=== PATIENT | male | born 1990 | race Caucasian/White ===

== ENCOUNTER 2016-11-09 17:16 | Emergency (ER) ==
[2016-11-09 18:01] VITALS: BP 118/80
--- NOTE | 2016-11-09 19:07 | UC ---
Throat Pain/Nasal Ricki HPI - HPI Summary HPI Summary: TWO WEEKS OF SINUS CONGESTION, COUGHING, AND RIB PAIN WITH COUGH. NO FEVER. - History of Current Complaint Chief Complaint: UCRespiratory Stated Complaint: COUGH,CHEST CONGESTION Time Seen by Provider: 11/09/16 18:15 Hx Obtained From: Patient Onset/Duration: Gradual Onset, Lasting Weeks, Still Present Severity: Moderate Pain Intensity: 0 Pain Scale Used: 0-10 Numeric Cough: Nonproductive Associated Signs & Symptoms: Positive: Sinus Discomfort, Nasal Discharge - Epiglottits Risk Factors Epiglottis Risk Factors: Negative - Allergies/Home Medications Allergies/Adverse Reactions: Allergies Allergy/AdvReac Type Severity Reaction Status Date / Time phosphates Allergy Severe Hives Uncoded 10/10/15 10:23 Era detergent Allergy Hives Uncoded 10/10/15 10:23 Home Medications: Home Medications Mirtazapine TAB* [Remeron TAB*] 15 mg PO BEDTIME 11/09/16 [History Confirmed ] Propranolol TAB* [Inderal TAB*] 10 mg PO BID 11/09/16 [History Confirmed ] PMH/Surg Hx/FS Hx/Imm Hx Previously Healthy: Yes Endocrine History Of: Denies: Diabetes, Thyroid Disease Cardiovascular History Of: Denies: Cardiac Disorders, Hypertension, Pacemaker/ICD, Congestive Heart Failure Respiratory History Of: Denies: COPD, Asthma GI/ History Of: Denies: Ulcer, Renal Disease - Surgical History Surgical History: None Surgery Procedure, Year, and Place: Appendectomy. Tonsillectomy - Family History Known Family History: Negative: Respiratory Disease - Social History Occupation: Employed Full-time Lives: With Family Alcohol Use: None Substance Use Type: None Smoking Status (MU): Former Smoker Type: Cigars Amount Used/How Often: when drinking alcohol Have You Smoked in the Last Year: Yes - Immunization History Most Recent Tetanus Shot: 2 yrs ago Review of Systems Constitutional: Negative Skin: Negative Eyes: Negative ENT: Nasal Discharge Respiratory: Cough Cardiovascular: Negative Gastrointestinal: Negative Genitourinary: Negative Motor: Negative Neurovascular: Negative Musculoskeletal: Negative Neurological: Negative Psychological: Negative All Other Systems Reviewed And Are Negative: Yes Physical Exam Triage Information Reviewed: Yes Appearance: No Pain Distress, Well-Nourished, Ill-Appearing - MILDLY Vital Signs: Initial Vital Signs Temp 97.4 F 11/09/16 17:58 Pulse 90 04/22/17 17:58 Resp 18 11/09/16 17:58 BP 118/80 11/09/16 17:58 Pulse Ox 100 11/09/16 17:58 Vital Signs Reviewed: Yes Eye Exam: Normal ENT: Positive: Hearing grossly normal, Pharynx normal, TM bulging, TM dull Dental Exam: Normal Neck exam: Normal Neck: Positive: Supple, Nontender, No Lymphadenopathy Respiratory Exam: Other - COUGH Respiratory: Positive: Chest non-tender, Lungs clear, Normal breath sounds, No respiratory distress, No accessory muscle use Cardiovascular Exam: Normal Cardiovascular: Positive: RRR, No Murmur, Pulses Normal Abdominal Exam: Normal Abdomen Description: Positive: Nontender, No Organomegaly Musculoskeletal Exam: Normal Musculoskeletal: Positive: Strength Intact Neurological Exam: Normal Psychological Exam: Normal Skin Exam: Normal Throat Pain/Nasal Course/Dx - Differential Dx/Diagnosis Differential Diagnosis/HQI/PQRI: Influenza, Pharyngitis, Sinusitis, URI Provider Diagnoses: SINUSITIS Discharge - Discharge Plan Condition: Stable Disposition: HOME Prescriptions: Azithromycin TAB* [Zithromax TAB (Z-FUENTES) 250 mg #6 tabs] 250 mg PO DAILY #6 tab Benzonatate CAP* [Tessalon 100 MG CAP*] 100 mg PO TID #15 cap Patient Education Materials: Sinusitis (ED), Acute Bronchitis (ED) Referrals: Min Dooley MD [Primary Care Provider] -
== END 2016-11-09 18:27 | disposition home or self-care (01) ==
LOC: UCEAST 17:16
DX: J32.9 Chronic sinusitis, unspecified (principal); Z87.891 Personal history of nicotine dependence
CPT/HCPCS: 99212; G0463

== ENCOUNTER 2017-01-06 13:32 | Emergency (ER) | payer OTHER ==
[2017-01-06 15:08] VITALS: BP 112/73
[2017-01-06] MEDS ORDERED: diPHENhydraMINE PO* 25 MG PO ONE (16:33)
--- NOTE | 2017-01-06 16:42 | UC ---
Skin Complaint HPI - HPI Summary HPI Summary: AT 1300 WAS PUTING ON SHIRT TO GO TO WORK, WAS BITTEN BY SOME UNKNOWN INSECT RIGHT BACK. RED ARE AT SITE OF BITE. NO STINGER OR INSECT NOTED. NO TICK BITE. NO LIP SWELLING OR DIFFICULTY BREATHING. TENDER RASH ON RIGHT MID BACK. - History of Current Complaint Chief Complaint: UCSkin Time Seen by Provider: 01/06/17 16:26 Stated Complaint: BUG BITE Hx Obtained From: Patient, Family/User Interface Engineer Onset/Duration: Sudden Onset, Lasting Hours, Still Present Skin Exposure Onset/Duration: Hours Ago Onset Severity: Severe Current Severity: Mild Location: Discrete - RIGHT BACK Aggravating: Nothing Alleviating: Nothing Associated Signs & Symptoms: Positive: Negative Related History: Insect Bite/Sting - Allergy/Home Medications Allergies/Adverse Reactions: Allergies Allergy/AdvReac Type Severity Reaction Status Date / Time phosphates Allergy Severe Hives Uncoded 01/06/17 15:08 Era detergent Allergy Hives Uncoded 01/06/17 15:08 Home Medications: Home Medications Divalproex DR TAB(*) [Depakote DR TAB(*)] 01/06/17 [History Confirmed 01/06/17] Gabapentin CAP(*) [Neurontin 100 mg CAP(*)] 01/06/17 [History Confirmed ] Review of Systems Constitutional: Negative Skin: Rash - RIGHT BACK 2CM X 2CM Eyes: Negative ENT: Negative Respiratory: Negative Cardiovascular: Negative Gastrointestinal: Negative Genitourinary: Negative Motor: Negative Neurovascular: Negative Musculoskeletal: Negative Neurological: Negative Psychological: Negative All Other Systems Reviewed And Are Negative: Yes PMH/Surg Hx/FS Hx/Imm Hx Previously Healthy: Yes - Surgical History Surgical History: None Surgery Procedure, Year, and Place: Appendectomy. Tonsillectomy - Family History Known Family History: Negative: Respiratory Disease - Social History Occupation: Employed Full-time Lives: With Family Alcohol Use: Occasionally Substance Use Type: Prescribed Smoking Status (MU): Current Some Day Smoker Type: Cigars Amount Used/How Often: when drinking alcohol Have You Smoked in the Last Year: Yes - Immunization History Most Recent Tetanus Shot: 2 yrs ago Physical Exam Triage Information Reviewed: Yes Appearance: Well-Appearing, No Pain Distress, Well-Nourished Vital Signs: Initial Vital Signs Temp 97.4 F 01/06/17 15:03 Pulse 73 01/06/17 15:03 Resp 12 01/06/17 15:03 BP 112/73 01/06/17 15:03 Pulse Ox 100 01/06/17 15:03 Vital Signs Reviewed: Yes Eye Exam: Normal Eyes: Positive: Conjunctiva Clear ENT Exam: Normal ENT: Positive: Normal ENT inspection, Hearing grossly normal, TMs normal Dental Exam: Normal Neck exam: Normal Respiratory Exam: Normal Respiratory: Positive: Chest non-tender, Lungs clear, Normal breath sounds, No respiratory distress, No accessory muscle use Cardiovascular Exam: Normal Cardiovascular: Positive: RRR, No Murmur, Pulses Normal Abdominal Exam: Normal Abdomen Description: Positive: Nontender, No Organomegaly Musculoskeletal Exam: Normal Musculoskeletal: Positive: Strength Intact, ROM Intact Neurological Exam: Normal Psychological Exam: Normal Skin: Positive: rashes - ERRYTHEMA 2CM X 2CM RIGHT MID BACK Course/Dx - Differential Diagnoses - Skin Complaint Differential Diagnoses: Allergic Reaction, Cellulitis, Tick Born Illness - Diagnoses Provider Diagnoses: INSECT BITE/STING RIGHT MIDBACK Discharge - Discharge Plan Condition: Stable Disposition: HOME Patient Education Materials: Insect Bite or Sting (ED) Forms: *Work Release Referrals: Min Dooley MD [Primary Care Provider] - Images Front/Back of Body, Lg ([place]): 1 - TENDER ERRYTHEMA 2CM X 2CM RIGHT MID BACK
== END 2017-01-06 16:40 | disposition home or self-care (01) ==
LOC: UCEAST 13:32
DX: S30.860A Insect bite (nonvenomous) of lower back and pelvis, initial encounter (principal); W57.XXXA Bitten or stung by nonvenomous insect and other nonvenomous arthropods, initial encounter; Y93.9 Activity, unspecified; Y92.019 Unspecified place in single-family (private) house as the place of occurrence of the external cause; Y99.9 Unspecified external cause status
CPT/HCPCS: 99211; A9270-GY; G0463

== ENCOUNTER 2017-03-19 10:08 | Emergency (ER) | payer OTHER ==
[2017-03-19] MEDS ORDERED: Ondansetron INJ* 2 MG/ML VIAL IV ONE (11:25)
[2017-03-19] MEDS ORDERED: Morphine INJ* 4 MG/ML 1 ML SYRINGE IV ONE ×2 (11:25→14:36)
[2017-03-19 11:47] LABS: Hematocrit 46 % (42-52); Hemoglobin 15.5 g/dl (14.0-18.0); Mean Corpuscular HGB Conc 34 g/dl (31-36); Mean Corpuscular Hemoglobin 30 pg (27-31); Mean Corpuscular Volume 89 fL (80-94); Mean Platelet Volume 9 um3 (7.4-10.4); Red Blood Count 5.16 10^6/ul (4.0-5.4); Red Cell Distribution Width 13 % (10.5-15); White Blood Count 8.5 10^3/ul (3.5-10.8)
[2017-03-19] MEDS: NS 0.9% 1000 ML* 2,000 ML IV ONE ×2 (11:56→14:05)
[2017-03-19] MEDS ORDERED: Iohexol 300* (CONTRAST) 10 ML SDV IV ONE (11:58)
[2017-03-19 12:01] LABS: Albumin 4.6 g/dL (3.2-5.2); C Reactive Protein 1.85 mg/L (< 5.00); Calcium 9.7 mg/dL (8.6-10.3); EGFR African American 132.6 (>60); EGFR Non-African American 103.1 (>60); Globulin 2.9 g/dL (2-4); Magnesium 2.1 mg/dL (1.9-2.7); Potassium 4.3 mmol/L (3.5-5.0); Total Bilirubin 0.3 mg/dL (0.2-1.0); Total Protein 7.5 g/dL (6.4-8.9)
--- NOTE | 2017-03-19 14:09 | RAD ---
CLINICAL HISTORY: Left lower quadrant pain and rectal bleeding COMPARISON: March 31, 2013 TECHNIQUE: Multiple contiguous axial CT scans were obtained of the abdomen and pelvis after the administration of intravenous contrast. Coronal and sagittal multiplanar reformations are submitted for review. Oral contrast was administered. Delayed images were obtained through the abdomen and pelvis. FINDINGS: LUNG BASES: The lung bases are clear. LIVER: The liver is diffusely low in attenuation compared to the spleen. There are no focal hepatic parenchymal masses. BILE DUCTS: There is no intrahepatic or extrahepatic biliary dilatation. GALLBLADDER: The gallbladder is normal, without pericholecystic inflammatory change. PANCREAS: The pancreas is normal, without mass or ductal dilatation. SPLEEN: Normal in size and appearance. UPPER GI TRACT: Evaluation of the gastrointestinal tract is limited by incomplete gastric distention. The upper GI tract is unremarkable. SMALL BOWEL AND MESENTERY: The small bowel is normal in contour, course, and caliber. There is no obstruction or dilatation. COLON: There is mild mucosal thickening of the descending and sigmoid colon. ADRENALS: Normal bilaterally. KIDNEYS: The kidneys are normal in shape, size, contour, and axis. There is no hydronephrosis or nephrolithiasis. BLADDER: The bladder is smooth in contour. PELVIC ORGANS: The prostate gland is normal. The seminal vesicles are symmetric. AORTA: The aorta is normal. IVC: Unremarkable LYMPH NODES: There is no lymphadenopathy by size criteria. ABDOMINAL WALL: There is no evidence for abdominal wall hernia. BONES AND SOFT TISSUES: The bones and soft tissues are unremarkable. OTHER: None IMPRESSION: 1. MILD MUCOSAL THICKENING OF THE DESCENDING AND SIGMOID COLON. RECOMMEND CONSIDERATION OF CORRELATION WITH DIRECT VISUALIZATION THE NONACUTE SETTING. 2. FATTY INFILTRATION OF THE LIVER.
[2017-03-19 15:45] VITALS: BP 125/75
--- NOTE | 2017-03-19 18:21 | ED ---
Magan Galeas Angela, scribed for Enoc Hamilton MD on 03/19/17 at 1120 . Abdominal Pain/Male - HPI Summary HPI Summary: This pt is a 26 y/o male c/o sudden onset of lower abdominal pain since this morning at 0730. Pt reports associated bloody stools since this morning, approximately 8 episodes. He notes that his abd pain is waxing and waning, located in the low middle and does not radiate. He endorses chills. Pt's pain is aggravated by bowel movements. He has not taken any pain medications. Pt describes similar symptoms when he was diagnosed with viral colitis at the age of 11. Pt denies nausea, vomiting, fever, light-headed, dizziness, rhinorrhea, constipation. He denies any changes to his medications. Pt has a history of appendectomy as a teen. No family history of ulcerative colitis. FHx: diverticulitis. Pt is a current smoker. - History of Current Complaint Chief Complaint: EDAbdPain Stated Complaint: BLOOD IN STOOL Time Seen by Provider: 03/19/17 10:55 Hx Obtained From: Patient Onset/Duration: Sudden Onset Timing: Constant Pain Intensity: 9 - Allergies/Home Medications Allergies/Adverse Reactions: Allergies Allergy/AdvReac Type Severity Reaction Status Date / Time phosphates Allergy Severe Hives Uncoded 03/19/17 10:11 Era detergent Allergy Hives Uncoded 03/19/17 10:11 PMH/Surg Hx/FS Hx/Imm Hx Endocrine/Hematology History: Denies: Hx Diabetes, Hx Systemic Lupus Erythematosus, Hx Thyroid Disease Cardiovascular History: Denies: Hx Congestive Heart Failure, Hx Hypertension, Hx Pacemaker/ICD Respiratory History: Denies: Hx Asthma, Hx Chronic Obstructive Pulmonary Disease (COPD) GI History: Reports: Other GI Disorders - viral colitis Denies: Hx Ulcer History: Denies: Hx Dialysis, Hx Renal Disease Musculoskeletal History: Denies: Hx Rheumatoid Arthritis Sensory History: Denies: Hx Hearing Aid Psychiatric History: Denies: Hx Panic Disorder - Cancer History Hx Chemotherapy: No - Surgical History Surgery Procedure, Year, and Place: Appendectomy. Tonsillectomy Infectious Disease History: Denies: Hx Hepatitis, Hx Human Immunodeficiency Virus (HIV), Traveled Outside the [place] in Last 30 Days - Family History Known Family History: Positive: Other - Diverticulitis Negative: Respiratory Disease - Social History Alcohol Use: Occasionally Substance Use Type: Reports: Prescribed Smoking Status (MU): Current Some Day Smoker Type: Cigars Amount Used/How Often: when drinking alcohol Have You Smoked in the Last Year: Yes Review of Systems Positive: Chills. Negative: Fever Eyes: Negative ENT: Negative Negative: Nasal Discharge Cardiovascular: Negative Respiratory: Negative Positive: Abdominal Pain, Other - Bloody stools. Negative: Vomiting, Diarrhea, Nausea Negative: dysuria, frequency, urgency Musculoskeletal: Negative Neurological: Negative - light-headedness, dizziness All Other Systems Reviewed And Are Negative: Yes Physical Exam - Summary Physical Exam Summary: The patient is well-nourished in mild acute distress. The skin is warm and skin color reflects adequate perfusion. The pt is diaphoretic. HEENT: The head is normocephalic and atraumatic. The pupils are equal and reactive. The conjunctivae are clear and without drainage. Nares are patent and without drainage. Mouth reveals moist mucous membranes and the throat is without erythema and exudate. The external ears are intact. The ear canals are patent and without drainage. The tympanic membranes are intact. Neck is supple with full range of motion and non-tender. Respiratory: Chest is non-tender. Lungs are clear to auscultation and breath sounds are symmetrical and equal. Cardiovascular: Hear is regular rate and rhythm. There is no murmur or rub auscultated. There is no peripheral edema and pulses are symmetrical and equal. Abdomen: The abdomen is soft. There is tenderness in the left lower quadrant and on the midline, some tenderness in the right lower quadrant. There is no rebound. There are normal bowel sounds heard in all four quadrants and there is no organomegaly palpated. Musculoskeletal: There is no back pain noted. Extremities are non-tender with full range of motion. There is good capillary refill. There is no peripheral edema or calf tenderness elicited. Neurological: Patient is alert and oriented to person, place and time. The patient has symmetrical motor strength in all four extremities. Psychiatric: The patient has an appropriate affect and does not exhibit any anxiety or depression. Triage Information Reviewed: Yes Vital Signs On Initial Exam: Initial Vitals Temp Pulse Resp BP Pulse Ox 97.2 F 93 18 133/83 97 03/19/17 10:11 03/19/17 10:11 03/19/17 10:11 03/19/17 10:11 03/19/17 10:11 Vital Signs Reviewed: Yes Diagnostics - Vital Signs Vital Signs Temp Pulse Resp BP Pulse Ox 03/19/17 10:57 97.2 F 93 18 133/83 97 03/19/17 10:11 97.2 F 93 18 133/83 97 - Laboratory Lab Results: Lab Results 03/19/17 03/19/17 03/19/17 Range/Units 11:35 11:35 11:35 WBC 8.5 (3.5-10.8) 10^3/ul RBC 5.16 (4.0-5.4) 10^6/ul Hgb 15.5 (14.0-18.0) g/dl Hct 46 (42-52) % MCV 89 (80-94) fL MCH 30 (27-31) pg MCHC 34 (31-36) g/dl RDW 13 (10.5-15) % Plt Count 231 (150-450) 10^3/ul MPV 9 (7.4-10.4) um3 Neut % (Auto) 64.3 (38-83) % Lymph % (Auto) 24.6 L (25-47) % [place] % (Auto) 9.3 H (1-9) % Eos % (Auto) 1.1 (0-6) % Baso % (Auto) 0.7 (0-2) % Absolute Neuts (auto) 5.5 (1.5-7.7) 10^3/ul Absolute Lymphs (auto) 2.1 (1.0-4.8) 10^3/ul Absolute Monos (auto) 0.8 (0-0.8) 10^3/ul Absolute Eos (auto) 0.1 (0-0.6) 10^3/ul Absolute Basos (auto) 0.1 (0-0.2) 10^3/ul Absolute Nucleated RBC 0 10^3/ul Nucleated RBC % 0 INR (Anticoag Therapy) 0.89 (0.89-1.11) Sodium 137 (133-145) mmol/L Potassium 4.3 (3.5-5.0) mmol/L Chloride 103 (101-111) mmol/L Carbon Dioxide 26 (22-32) mmol/L Anion Gap 8 (2-11) mmol/L BUN 22 (6-24) mg/dL Creatinine 0.88 (0.67-1.17) mg/dL Est GFR ( Amer) 132.6 (>60) Est GFR (Non-Af Amer) 103.1 (>60) BUN/Creatinine Ratio 25.0 H (8-20) Glucose 103 H (70-100) mg/dL Lactic Acid (0.5-2.0) mmol/L Calcium 9.7 (8.6-10.3) mg/dL Magnesium 2.1 (1.9-2.7) mg/dL Total Bilirubin 0.30 (0.2-1.0) mg/dL AST 143 H (13-39) U/L ALT 216 H (7-52) U/L Alkaline Phosphatase 84 (34-104) U/L C-Reactive Protein 1.85 (< 5.00) mg/L Total Protein 7.5 (6.4-8.9) g/dL Albumin 4.6 (3.2-5.2) g/dL Globulin 2.9 (2-4) g/dL Albumin/Globulin Ratio 1.6 (1-3) Lipase 11 (11.0-82.0) U/L 03/19/17 Range/Units 11:35 WBC (3.5-10.8) 10^3/ul RBC (4.0-5.4) 10^6/ul Hgb (14.0-18.0) g/dl Hct (42-52) % MCV (80-94) fL MCH (27-31) pg MCHC (31-36) g/dl RDW (10.5-15) % Plt Count (150-450) 10^3/ul MPV (7.4-10.4) um3 Neut % (Auto) (38-83) % Lymph % (Auto) (25-47) % [place] % (Auto) (1-9) % Eos % (Auto) (0-6) % Baso % (Auto) (0-2) % Absolute Neuts (auto) (1.5-7.7) 10^3/ul Absolute Lymphs (auto) (1.0-4.8) 10^3/ul Absolute Monos (auto) (0-0.8) 10^3/ul Absolute Eos (auto) (0-0.6) 10^3/ul Absolute Basos (auto) (0-0.2) 10^3/ul Absolute Nucleated RBC 10^3/ul Nucleated RBC % INR (Anticoag Therapy) (0.89-1.11) Sodium (133-145) mmol/L Potassium (3.5-5.0) mmol/L Chloride (101-111) mmol/L Carbon Dioxide (22-32) mmol/L Anion Gap (2-11) mmol/L BUN (6-24) mg/dL Creatinine (0.67-1.17) mg/dL Est GFR ( Amer) (>60) Est GFR (Non-Af Amer) (>60) BUN/Creatinine Ratio (8-20) Glucose (70-100) mg/dL Lactic Acid 1.1 (0.5-2.0) mmol/L Calcium (8.6-10.3) mg/dL Magnesium (1.9-2.7) mg/dL Total Bilirubin (0.2-1.0) mg/dL AST (13-39) U/L ALT (7-52) U/L Alkaline Phosphatase (34-104) U/L C-Reactive Protein (< 5.00) mg/L Total Protein (6.4-8.9) g/dL Albumin (3.2-5.2) g/dL Globulin (2-4) g/dL Albumin/Globulin Ratio (1-3) Lipase (11.0-82.0) U/L Result Diagrams: 03/19/17 11:35 03/19/17 11:35 Lab Statement: Any lab studies that have been ordered have been reviewed, and results considered in the medical decision making process. - CT Abd/Pelvis CT CT Interpretation: Positive (See Comments) - IMPRESSION: 1. Mild mucosal thickening of the descending and sigmoid colon. Recommend consideration of correlation with direct visualization the nonacute setting. 2. Fatty infiltration of the liver. ED physician has reviewed this radiology report and agrees. CT Interpretation Completed By: Radiologist Re-Evaluation - Re-Evaluation First Eval Re-Evaluation Time: 14:54 Comment: I reviewed the results with the pt. Abdominal Pain Fem Course/Dx - Course Course Of Treatment: This pt is a 26 y/o male c/o sudden onset of lower abdominal pain since this morning at 0730. Pt reports associated bloody stools since this morning, approximately 8 episodes. He notes that his abd pain is waxing and waning, located in the low middle and does not radiate. In the ED course, the pt was give IV fluids and morphine. Pt will be discharged with flagyl, cipro, and percocet. - Diagnoses Differential Diagnosis/HQI/PQRI: Diverticulitis, Ischemic Bowel, Other - rectal bleeding, colitis, crohn, uc Provider Diagnoses: Colitis Discharge - Discharge Plan Condition: Stable Disposition: HOME Prescriptions: Ciprofloxacin TAB* [Cipro 500 MG TAB*] 500 mg PO BID #20 tab Metronidazole [Flagyl 500 MG TAB] 500 mg PO QID #40 tab oxyCODONE/Acetamin 5/325 MG* [Percocet 5/325 TAB*] 1 tab PO Q6H PRN #20 tab MDD 4 PRN Reason: pain Patient Education Materials: Colitis (ED) Forms: *Work Release Referrals: Pop Flanagan MD [Medical Doctor] - Min Dooley MD [Primary Care Provider] - Additional Instructions: Please follow up with your primary care provider in [place]. Also, follow up with Dr. Flanagan, paraprofessional aide teacher. Take Flagyl, Cipro, and Percocet as instructed. The documentation as recorded by the Magan triana Angela accurately reflects the service I personally performed and the decisions made by , Enoc Hamilton MD.
== END 2017-03-19 15:45 | disposition home or self-care (01) ==
LOC: ED 10:08
DX: K52.9 Noninfective gastroenteritis and colitis, unspecified (principal); Z72.0 Tobacco use; K76.0 Fatty (change of) liver, not elsewhere classified
CPT/HCPCS: 36415; 74177; 80053; 83605; 83690; 83735; 85025; 85610; 86140; 96361; 96374; 96375; 96376; 99282; J2270; J2405; Q9967

== ENCOUNTER 2017-04-20 18:25 | Emergency (ER) | payer OTHER ==
[2017-04-20 18:33] VITALS: BP 140/87
[2017-04-20] MEDS ORDERED: Tetan/Diph/Pertus SYR(Tdap)* 0.5 ML SYR(BOOSTRIX) use SYR IM ONE (18:50)
--- NOTE | 2017-04-20 18:50 | UC ---
Bite Injury/Animal HPI - HPI Summary HPI Summary: 26 YEAR OLD MALE PRESENTS WITH COMPLAINS OF A CAT. - History of Current Complaint Chief Complaint: UCBiteInjury Stated Complaint: CAT BITE Time Seen by Provider: 04/20/17 18:47 Severity Currently: Moderate Severity Initially: Moderate Pain Scale Used: 0-10 Numeric - 5 Onset/Duration: Sudden Onset Type of Bite: Human - Allergies/Home Medications Allergies/Adverse Reactions: Allergies Allergy/AdvReac Type Severity Reaction Status Date / Time phosphates Allergy Severe Hives Uncoded 04/20/17 18:34 Era detergent Allergy Hives Uncoded 04/20/17 18:34 Home Medications: Home Medications Divalproex Sodium [Depakote] 3 tab PO AC 04/20/17 [History Confirmed 04/20/17] PMH/Surg Hx/FS Hx/Imm Hx Previously Healthy: Yes - Surgical History Surgical History: Yes Surgery Procedure, Year, and Place: Appendectomy. Tonsillectomy - Family History Known Family History: Positive: Other - Diverticulitis Negative: Respiratory Disease - Social History Alcohol Use: Occasionally Substance Use Type: None, Prescribed Smoking Status (MU): Former Smoker Type: Cigars Amount Used/How Often: when drinking alcohol Have You Smoked in the Last Year: Yes - Immunization History Most Recent Tetanus Shot: less then 5 yrs Review of Systems Constitutional: Negative Skin: Other - CAT BITE Eyes: Negative ENT: Negative Respiratory: Negative Cardiovascular: Negative Gastrointestinal: Negative Genitourinary: Negative Motor: Negative Neurovascular: Negative Musculoskeletal: Negative Neurological: Negative Psychological: Negative All Other Systems Reviewed And Are Negative: Yes Physical Exam Triage Information Reviewed: Yes Appearance: Well-Appearing Vital Signs: Initial Vital Signs Temp 36.6 C 04/20/17 18:29 Pulse 86 04/20/17 18:29 Resp 12 04/20/17 18:29 BP 140/87 04/20/17 18:29 Pulse Ox 99 04/20/17 18:29 Vital Signs Reviewed: Yes Eye Exam: Normal ENT Exam: Normal Dental Exam: Normal Neck exam: Normal Neck: Positive: 1 Respiratory Exam: Normal Cardiovascular Exam: Normal Abdominal Exam: Normal Musculoskeletal Exam: Normal Neurological Exam: Normal Psychological Exam: Normal Skin: Positive: Other - CAT BITE Bite Injury Course/Dx - Differential Dx/Diagnosis Provider Diagnoses: CAT BITE Discharge - Discharge Plan Condition: Stable Disposition: HOME Prescriptions: Amoxicillin/Clavulanate TAB* [Augmentin TAB 875*] 875 mg PO BID #20 tab Patient Education Materials: Animal Bite (ED) Referrals: Min Dooley MD [Primary Care Provider] -
[2017-04-20] MEDS ORDERED: Amoxicillin/Clavulanate TAB* 875 MG PO ONE (19:33)
== END 2017-04-20 19:45 | disposition home or self-care (01) ==
LOC: UCEAST 18:25
DX: T14.8XXA Other injury of unspecified body region, initial encounter (principal); W55.01XA Bitten by cat, initial encounter; Y92.9 Unspecified place or not applicable
CPT/HCPCS: 99213; A9270-GY; G0463

== ENCOUNTER 2017-07-27 13:41 | Emergency (ER) | payer OTHER ==
[2017-07-27 13:52] VITALS: BP 113/75
--- NOTE | 2017-07-27 14:18 | ED ---
Respiratory - HPI Summary HPI Summary: Cough and congestion for about 5 days. It is mainly dry. There is sore throat and ear pain as well. No known lung disease. Benadryl and certrizine is not helping. - History of Current Complaint Chief Complaint: UCRespiratory Stated Complaint: COUGH Time Seen by Provider: 07/27/17 13:52 Hx Obtained From: Patient Onset/Duration: Gradual Onset, Lasting Days Timing: Constant Initial Severity: Moderate Current Severity: Moderate Character: Cough (Nonproductive) Sputum Amount: Scant Aggravating Factor(s): URI, Deep Breaths Alleviating Factor(s): Nothing Associated Signs and Symptoms: URI, Chills, Nasal Congestion - Allergy/Home Medications Allergies/Adverse Reactions: Allergies Allergy/AdvReac Type Severity Reaction Status Date / Time phosphates Allergy Severe Hives Uncoded 07/27/17 13:52 Era detergent Allergy Hives Uncoded 07/27/17 13:52 PMH/Surg Hx/FS Hx/Imm Hx Previously Healthy: Yes Endocrine/Hematology History: Denies: Hx Diabetes, Hx Systemic Lupus Erythematosus, Hx Thyroid Disease Cardiovascular History: Denies: Hx Congestive Heart Failure, Hx Hypertension, Hx Pacemaker/ICD Respiratory History: Denies: Hx Asthma, Hx Chronic Obstructive Pulmonary Disease (COPD) GI History: Reports: Other GI Disorders - viral colitis Denies: Hx Ulcer History: Denies: Hx Dialysis, Hx Renal Disease Musculoskeletal History: Denies: Hx Rheumatoid Arthritis Sensory History: Denies: Hx Hearing Aid Psychiatric History: Denies: Hx Panic Disorder - Cancer History Hx Chemotherapy: No - Surgical History Surgery Procedure, Year, and Place: Appendectomy. Tonsillectomy Infectious Disease History: No Infectious Disease History: Denies: Hx Clostridium Difficile, Hx Hepatitis, Hx Human Immunodeficiency Virus (HIV), Traveled Outside the [place] in Last 30 Days - Family History Known Family History: Positive: Other - Diverticulitis Negative: Respiratory Disease - Social History Lives: With Family Alcohol Use: None Substance Use Type: Reports: None Smoking Status (MU): Former Smoker Type: Cigars Amount Used/How Often: when drinking alcohol Have You Smoked in the Last Year: Yes Review of Systems Positive: Chills Positive: Sore Throat Positive: Cough All Other Systems Reviewed And Are Negative: Yes Physical Exam Triage Information Reviewed: Yes Vital Signs On Initial Exam: Initial Vitals Temp Pulse Resp BP Pulse Ox 98.3 F 103 18 113/75 97 07/27/17 13:48 07/27/17 13:48 07/27/17 13:48 07/27/17 13:48 07/27/17 13:48 Vital Signs Reviewed: Yes Appearance: Positive: Well-Appearing - frequent dry cough but non toxic.. Negative: Pain Distress Skin: Positive: Warm. Negative: Dry Eyes: Positive: Normal, EOMI. Negative: HALEY ENT: Positive: Pharyngeal erythema, Uvula midline. Negative: Nasal congestion, Nasal drainage, TM bulging, TM dull, Tonsillar swelling, Tonsillar exudate, Trismus Neck: Positive: Supple, Nontender, No Lymphadenopathy Respiratory/Lung Sounds: Positive: Clear to Auscultation, Breath Sounds Present , Decreased Breath Sounds. Negative: Rales, Rhonchi, Subcutaneous Emphysema, Stridor, Tracheal Deviation, Wheezes Cardiovascular: Positive: Normal Abdomen Description: Positive: No Organomegaly. Negative: Distended, Guarding Musculoskeletal: Positive: Strength/ROM Intact Neurological: Positive: Sensory/Motor Intact, Alert, Oriented to Person Place, Time, Normal Gait Psychiatric: Positive: Normal AVPU Assessment: Alert Diagnostics - Vital Signs Vital Signs Temp Pulse Resp BP Pulse Ox 07/27/17 13:48 98.3 F 103 18 113/75 97 - Laboratory Lab Statement: Any lab studies that have been ordered have been reviewed, and results considered in the medical decision making process. Disposition - Course Course Of Treatment: Cough and congestion for about 5 days. This is most c/w viral illness. There are no signs of bacterial infection currently. He will try more supportive care and if not better on day 10, he will start z pack. - Diagnoses Provider Diagnoses: URI (upper respiratory infection) Discharge - Discharge Plan Condition: Good Disposition: HOME Prescriptions: Azithromyxin FUENTES (NF) [Z-Fuentes (Zithromax) 250 mg tabs #6] 2 tab PO .TODAY, THEN 1 DAILY #6 tab Benzonatate [TESSALON 200 MG CAP] 200 mg PO TID PRN #21 cap PRN Reason: Cough Dextromethorphan-Guaifenesin [Robitussin Cough & Chest 20-400 mg/20Ml] 1 liq PO BID #200 liq Patient Education Materials: Upper Respiratory Infection (ED) Referrals: Min Dooley MD [Primary Care Provider] - If Needed Additional Instructions: If not feeling better in 3 days start taking the z pack.
== END 2017-07-27 14:17 | disposition home or self-care (01) ==
LOC: UCCORT 13:41
DX: J06.9 Acute upper respiratory infection, unspecified (principal); Z90.89 Acquired absence of other organs; Z87.891 Personal history of nicotine dependence
CPT/HCPCS: 99212; G0463

== ENCOUNTER 2018-05-25 08:19 | Emergency (ER) | payer OTHER ==
--- OUTSIDE RECORDS SUMMARY | 2018-05-25 08:23 | XMS REPORT ---
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 Active generalized seizure Family History Date Family Member(s) Problem(s) Comments General Cancer General Heart Disease General Diabetes Father paternal grandmother and aunt - breast cancer Onset: (08/2014) Father No Current Problems 40's , not in touch. Mother maternal grandfather, cardiac issues, dec ?OR Mother maternal aunt - breast cancer Onset: (08/2014) Mother Carpal Tunnel alive age 50 . (age 50 Years) Onset: (2014) Siblings 3 dad's sided 1/2 brother epilepsy 19 bipolar, adhd. 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 in pm- Acetaminophen 00/00/ Active Tablets 500mg 2 tabs by Unknown Extra Strength 0000 mouth every 8 hours as needed for pain or fever Ibuprofen 00/00/ Active Tablets 200mg 4 tabs by Unknown 0000 mouth as needed Omeprazole 00/00/ Active Capsules 1 by mouth Unknown 0000 DR every day 8 Hour Pain 03/29/ Hx Tablets ER 650mg 60tabs 1 tab by Hattie Anderson Relief 2016 - mouth [place], 03/28/ every 8 M.D. 2016 hours as needed arthritis pain Gabapentin 00/00/ Hx Capsules 100mg 1 tab Unknown 0000 - three 03/30/ times 2014 daily Bentyl 00/00/ Hx Capsules 10mg 1 by mouth Unknown 0000 - four times 03/30/ daily 2015 Zoloft 00/00/ Hx Tablets 100mg 1 by mouth Unknown 0000 - every day 2015 Xanax /00/ Hx Tablets 0.5mg by mouth Unknown 0000 - three 03/28/ times a 2016 day as needed Oxycodone HCL 00/00/ Hx Tablets 10mg 1 by mouth Unknown 0000 - every 6 08/ hours as 2016 needed pain Gabapentin 00/00/ Hx Capsules 100mg 1 by mouth Unknown 0000 - tid. 2017 Naproxen 00/00/ Hx Tablets 500mg 1 tablet Unknown 0000 - with food 05/07/ by mouth 2017 twice a day Dicyclomine HCL 00/00/ Hx Tablets 20mg take 1 Unknown 0000 - tablet by 05/07/ mouth four 2017 times a day Propranolol HCL 00/00/ Hx Tablets 10mg 1 tabs by Unknown 0000 - mouth bid 2017 Mirtazapine 00/00/ Hx Tablets 30mg take 1 tab Unknown 0000 - at bedtime 2017 Vital Signs Date Vital Result Comment 05/08/2018 Height 69 inches 5'9" Heart Rate 87 /min BP Systolic 128 mmHg BP Diastolic 90 mmHg Respiratory Rate 16 /min Pain Level 6 O2 % BldC Oximetry 97 % 03/06/2018 Height 69 inches 5'9" Weight 210.00 lb Heart Rate 84 /min BP Systolic Sitting 124 mmHg BP Diastolic Sitting 70 mmHg Respiratory Rate 16 /min Pain Level 9 BMI (Body Mass Index) 31.0 kg/m2 12/27/2016 Height 69 inches 5'9" Weight 212.00 lb Heart Rate 86 /min BP Systolic Sitting 122 mmHg BP Diastolic Sitting 66 mmHg Respiratory Rate 16 /min O2 % BldC Oximetry 98 % Ra BMI (Body Mass Index) 31.3 kg/m2 08/05/2016 Heart Rate 108 /min BP Systolic Sitting 134 mmHg BP Diastolic Sitting 84 mmHg Respiratory Rate 20 /min Pain Level 0 O2 % BldC Oximetry 96 % 03/29/2016 Height 69 inches 5'9" Weight 207.00 lb Heart Rate 80 /min BP Systolic Sitting 122 mmHg BP Diastolic Sitting 78 mmHg Respiratory Rate 16 /min BMI (Body Mass Index) 30.6 kg/m2 03/30/2015 Height 69 inches 5'9" Weight 211.00 lb Heart Rate 86 /min BP Systolic Sitting 140 mmHg BP Diastolic Sitting 100 mmHg Pain Level 10 back BMI (Body Mass Index) 31.2 kg/m2 09/13/2014 Height 69 inches 5'9" Weight 203.00 lb with boots Heart Rate 100 /min BP Systolic Sitting 182 mmHg LA, reg BP Diastolic Sitting 102 mmHg LA, reg BMI (Body Mass Index) 30.0 kg/m2 Results Test Date Test Result H/L Range Note CBC Auto Diff 12/27/2016 White Blood Count 10.9 10^3/uL High 3.5-10.8 Red Blood Count 5.01 10^6/uL 4.0-5.4 Hemoglobin 14.7 g/dL 14.0-18.0 Hematocrit 44 % 42-52 Mean Corpuscular Volume 88 fL 80-94 Mean Corpuscular Hemoglobin 29 pg 27-31 Mean Corpuscular HGB Conc 34 g/dL 31-36 Red Cell Distribution Width 13 % 10.5-15 Platelet Count 202 10^3/uL 150-450 Mean Platelet Volume 10 um3 7.4-10.4 Abs Neutrophils 7.0 10^3/uL 1.5-7.7 Abs Lymphocytes 2.8 10^3/uL 1.0-4.8 Abs Monocytes 0.9 10^3/uL High 0-0.8 Abs Eosinophils 0.2 10^3/uL 0-0.6 Abs Basophils 0 10^3/uL 0-0.2 Abs Nucleated RBC 0 10^3/uL Granulocyte % 63.8 % 38-83 Lymphocyte % 25.5 % 25-47 Monocyte % 8.7 % 1-9 Eosinophil % 1.6 % 0-6 Basophil % 0.4 % 0-2 Nucleated Red Blood Cells % 0 Comp Metabolic Panel 12/27/2016 Sodium 135 mmol/L 133-145 Potassium 3.7 mmol/L 3.5-5.0 Chloride 102 mmol/L 101-111 Co2 Carbon Dioxide 26 mmol/L 22-32 Anion Gap 7 mmol/L 2-11 Glucose 100 mg/dL 70-100 Blood Urea Nitrogen 10 mg/dL 6-24 Creatinine 0.85 mg/dL 0.67-1.17 BUN/Creatinine Ratio 11.8 8-20 Calcium 9.3 mg/dL 8.6-10.3 Total Protein 6.7 g/dL 6.4-8.9 Albumin 4.3 g/dL 3.2-5.2 Globulin 2.4 g/dL 2-4 Albumin/Globulin Ratio 1.8 1-3 Total Bilirubin 0.40 mg/dL 0.2-1.0 Alkaline Phosphatase 88 U/L 34-104 Alt 35 U/L 7-52 Ast 18 U/L 13-39 Egfr Non- 107.3 >60 Egfr 138.0 >60 1 1 Because ethnic data is not always readily available, this report includes an eGFR for both -Americans and non- Americans. The National Kidney Disease Education Program (NKDEP) does not endorse the use of the MDRD equation for patients that are not between the ages of 18 and 70, are , have extremes of body size, muscle mass, or nutritional status, or are non- or non-. According to the National Kidney Foundation, irrespective of diagnosis, the stage of the disease is based on the level of kidney function: Stage Description GFR(mL/min/1.73 m(2)) 1 Kidney damage with normal or decreased GFR 90 2 Kidney damage with mild decrease in GFR 60-89 3 Moderate decrease in GFR 30-59 4 Severe decrease in GFR 15-29 5 Kidney failure <15 (or dialysis) Procedures Date CPT Code Description Status 11/01/2015 78042 EEG Recording Awake & Asleep Completed 10/13/2015 44035 EEG Recording Awake & Drowsy Completed 09/13/2014 15729 EKG Tracing & Interpretation Completed Encounters Type Date Location Provider CPT E/M Dx Office Visit 03/06/2018 [facility] [place] [address] G56.21 1:15p [facility] [id number] Office Visit 12/27/2016 3:30p [facility], 12435 G40.909 [facility] M.D. Office Visit 08/05/2016 3:00p [facility], 41623 G40.909 [facility] M.D. Office Visit 03/29/2016 10:15a [facility], [address]2841 G40.909 [facility] M.D. Office Visit 03/30/2015 1:15p [facility] Manuel Menchaca 56071 M51.26 [facility] M.D. Office Visit 09/13/2014 2:20p [facility] Dandre Gomez 42018 794.31 Eugenia Hair [phone] Plan of Care Future Appointment(s):06/18/2018 10:00 am - Manuel Monroy M.D. at [facility]05/08/2018 - [facility] [id number] Bitten by dog, [id number] Pain in right wristNew Xrays:Wrist Right 3+ VWSMRI Wrist Right ArthrogramFollow up:Follow up: after MRI
[2018-05-25 08:29] VITALS: BP 140/80
--- NOTE | 2018-05-25 08:43 | UC ---
Throat Pain/Nasal Ricki HPI - HPI Summary HPI Summary: 27-year-old male comes in with a chief complaint of cough and chest congestion. He's had a cough for 2 weeks. He remains gotten worse in the last 4 days bringing up yellow sputum. He works nights. He recently quit smoking. He's had chills and has not measured any fevers. Been taking some Robitussin without improvement. - History of Current Complaint Chief Complaint: UCGeneralIllness Stated Complaint: URI Time Seen by Provider: 05/25/18 08:23 Pain Intensity: 0 - Allergies/Home Medications Allergies/Adverse Reactions: Allergies Allergy/AdvReac Type Severity Reaction Status Date / Time phosphates Allergy Severe Hives Uncoded 05/25/18 08:29 Era detergent Allergy Hives Uncoded 05/25/18 08:29 Home Medications: Home Medications Omeprazole CAP* [Prilosec CAP* 20 MG] 1 tab PO DAILY 05/25/18 [History Confirmed 05/25/18] PMH/Surg Hx/FS Hx/Imm Hx Previously Healthy: Yes - Surgical History Surgical History: Yes Surgery Procedure, Year, and Place: Appendectomy. Tonsillectomy - Family History Known Family History: Positive: Diabetes, Other - Diverticulitis Negative: Respiratory Disease - Social History Alcohol Use: None Substance Use Type: None Smoking Status (MU): Former Smoker Type: Cigars Amount Used/How Often: when drinking alcohol Have You Smoked in the Last Year: Yes - Immunization History Most Recent Tetanus Shot: less then 5 yrs Review of Systems Constitutional: Negative Skin: Negative Eyes: Negative ENT: Sore Throat, Nasal Discharge, Sinus Congestion Respiratory: Cough Cardiovascular: Negative Gastrointestinal: Negative Motor: Negative Neurovascular: Negative Musculoskeletal: Negative Neurological: Negative Psychological: Negative Is Patient Immunocompromised?: No All Other Systems Reviewed And Are Negative: Yes Physical Exam Triage Information Reviewed: Yes Appearance: No Pain Distress, Well-Nourished, Ill-Appearing - MILD Vital Signs: Initial Vital Signs Temp 97 F 05/25/18 08:23 Pulse 88 05/25/18 08:23 Resp 20 05/25/18 08:23 BP 140/80 05/25/18 08:23 Pulse Ox 99 05/25/18 08:23 Eye Exam: Normal Eyes: Positive: Conjunctiva Clear ENT: Positive: Pharyngeal erythema, Nasal congestion, Nasal drainage, TMs normal Neck exam: Normal Neck: Positive: Supple Respiratory: Positive: No respiratory distress, Rhonchi Cardiovascular Exam: Normal Cardiovascular: Positive: RRR Musculoskeletal Exam: Normal Musculoskeletal: Positive: Strength Intact, ROM Intact Neurological Exam: Normal Neurological: Positive: Alert, Muscle Tone Normal Psychological Exam: Normal Psychological: Positive: Normal Response To Family, Age Appropriate Behavior Skin Exam: Normal Throat Pain/Nasal Course/Dx - Course Course Of Treatment: SX > 10 DAYS - Differential Dx/Diagnosis Provider Diagnoses: Bronchitis Discharge - Sign-Out/Discharge Documenting (check all that apply): Patient Departure All imaging exams completed and their final reports reviewed: No Studies - Discharge Plan Condition: Stable Disposition: HOME Prescriptions: Azithromyxin FUENTES (NF) [Z-Fuentes (Zithromax) 250 mg tabs #6] 2 tab PO .TODAY, THEN 1 DAILY #6 tab Benzonatate CAP* [Tessalon 100 MG CAP*] 100 mg PO TID PRN #20 cap PRN Reason: Cough Patient Education Materials: Acute Bronchitis (ED) Referrals: Min Dooley MD [Primary Care Provider] - Additional Instructions: FOLLOW UP WITH YOUR DOCTOR IF NOT COMPLETELY IMPROVED. GET RECHECKED FOR ANY WORSENING OF YOUR CONDITION OR QUESTIONS OR CONCERNS. - Billing Disposition and Condition Condition: STABLE Disposition: Home
== END 2018-05-25 08:59 | disposition home or self-care (01) ==
LOC: UCEAST 08:19
DX: J40 Bronchitis, not specified as acute or chronic (principal); Z87.891 Personal history of nicotine dependence
CPT/HCPCS: 99212; G0463

== ENCOUNTER 2018-11-23 10:07 | Emergency (ER) | payer OTHER ==
[2018-11-23 10:53] VITALS: BP 137/74
--- NOTE | 2018-11-23 11:07 | ED ---
Skin Complaint - HPI Summary HPI Summary: 28 yr old male with the complaint of bite to the left forearm. He is not sure what bit him, but he has some redness, swelling and discomfort over the bite area. This occurred in his sleep. He denies fever. - History of Current Complaint Chief Complaint: UCSkin Time Seen by Provider: 11/23/18 10:56 Stated Complaint: SKIN CONCERN Pain Intensity: 5 - Allergy/Home Medications Allergies/Adverse Reactions: Allergies Allergy/AdvReac Type Severity Reaction Status Date / Time phosphates Allergy Severe Hives Uncoded 11/23/18 10:48 Era detergent Allergy Hives Uncoded 11/23/18 10:48 Home Medications: Home Medications Famotidine TAB* [Pepcid 20 MG TAB*] 1 tab PO DAILY 11/23/18 [History Confirmed 11/23/18] PMH/Surg Hx/FS Hx/Imm Hx Endocrine/Hematology History: Denies: Hx Diabetes, Hx Systemic Lupus Erythematosus, Hx Thyroid Disease Cardiovascular History: Denies: Hx Congestive Heart Failure, Hx Hypertension, Hx Pacemaker/ICD Respiratory History: Denies: Hx Asthma, Hx Chronic Obstructive Pulmonary Disease (COPD) GI History: Reports: Other GI Disorders - viral colitis Denies: Hx Ulcer History: Denies: Hx Dialysis, Hx Renal Disease Musculoskeletal History: Denies: Hx Rheumatoid Arthritis Sensory History: Denies: Hx Hearing Aid Psychiatric History: Denies: Hx Panic Disorder - Cancer History Hx Chemotherapy: No - Surgical History Surgery Procedure, Year, and Place: Appendectomy. Tonsillectomy Infectious Disease History: No Infectious Disease History: Denies: Hx Clostridium Difficile, Hx Hepatitis, Hx Human Immunodeficiency Virus (HIV), Traveled Outside the [place] in Last 30 Days - Family History Known Family History: Positive: Diabetes, Other - Diverticulitis Negative: Respiratory Disease - Social History Occupation: Employed Full-time Alcohol Use: None Substance Use Type: Reports: None Smoking Status (MU): Former Smoker Type: Cigars Amount Used/How Often: when drinking alcohol Have You Smoked in the Last Year: Yes Review of Systems Positive: Fever Positive: Other - insetc bite left forearm with soft tissue infection All Other Systems Reviewed And Are Negative: Yes Physical Exam Triage Information Reviewed: Yes Vital Signs On Initial Exam: Initial Vitals Temp Pulse Resp BP Pulse Ox 97.4 F 79 15 137/74 99 11/23/18 10:49 11/23/18 10:49 11/23/18 10:49 11/23/18 10:49 11/23/18 10:49 Vital Signs Reviewed: Yes Appearance: Positive: Well-Appearing, No Pain Distress Skin: Positive: Warm, Other - insect bite left forearm with mild erythema. Are is over hair follicle. No redness proximal to the bite. Head/Face: Positive: Normal Head/Face Inspection Eyes: Positive: EOMI ENT: Positive: Pharynx normal Respiratory/Lung Sounds: Positive: Clear to Auscultation Cardiovascular: Positive: Pulses are Symmetrical in both Upper and Lower Extremities Abdomen Description: Positive: Nontender Musculoskeletal: Positive: Strength/ROM Intact Neurological: Positive: Sensory/Motor Intact, Alert, Oriented to Person Place, Time, CN Intact II-III Psychiatric: Positive: Normal - [place] Coma Scale Best Eye Response: 4 - Spontaneous Best Motor Response: 6 - Obeys Commands Best Verbal Response: 5 - Oriented Coma Scale Total: 15 Diagnostics - Vital Signs Vital Signs Temp Pulse Resp BP Pulse Ox 11/23/18 10:49 97.4 F 79 15 137/74 99 - Laboratory Lab Statement: Any lab studies that have been ordered have been reviewed, and results considered in the medical decision making process. Course/Dx - Course Course Of Treatment: 28 yr old with infected insect bite. Plan DC home. FU with PMD. Anna Marie script - Diagnoses Provider Diagnoses: Insect bite, Cellulitis Discharge - Sign-Out/Discharge Documenting (check all that apply): Patient Departure All imaging exams completed and their final reports reviewed: No Studies - Discharge Plan Condition: Good Disposition: HOME Prescriptions: Doxycycline Monohydrate 100 mg PO BID #20 capsule Patient Education Materials: Insect Bite or Sting (ED), Folliculitis (ED) Referrals: No Primary Care Phys,NOPCP [Primary Care Provider] - [facility]IAN REFERRAL [Outside] - 2 Days - Billing Disposition and Condition Condition: GOOD Disposition: Home
== END 2018-11-23 11:39 | disposition home or self-care (01) ==
LOC: UCCORT 10:07
DX: S50.862A Insect bite (nonvenomous) of left forearm, initial encounter (principal); L03.114 Cellulitis of left upper limb; K52.89 Other specified noninfective gastroenteritis and colitis; Z88.8 Allergy status to other drugs, medicaments and biological substances; Z91.048 Other nonmedicinal substance allergy status; Z87.891 Personal history of nicotine dependence; X58.XXXA Exposure to other specified factors, initial encounter
CPT/HCPCS: 99212; G0463

== ENCOUNTER 2019-02-18 18:59 | Emergency (ER) | payer OTHER ==
[2019-02-18 19:55] VITALS: BP 129/87
--- NOTE | 2019-02-18 21:08 | UC ---
General HPI - HPI Summary HPI Summary: Patient is a 28-year-old male here with left-sided tingling. Patient woke up this morning with tingling from his fingertips to his shoulder. Patient was having difficulty grasping milk jug secondary to the difficult sensation. Patient denies any weakness, change in vision, change in speech, lower extremity symptoms. Patient had some similar symptoms when he was 21 years old with no diagnosed medical condition. Medications reviewed - History of Current Complaint Chief Complaint: UCUpperExtremity Stated Complaint: TINGLING IN LT HAND/ARM Time Seen by Provider: 02/18/19 20:56 Hx Obtained From: Patient Onset/Duration: Sudden Onset Pain Intensity: 0 - Allergy/Home Medications Allergies/Adverse Reactions: Allergies Allergy/AdvReac Type Severity Reaction Status Date / Time phosphates Allergy Severe Hives Uncoded 02/18/19 19:55 Era detergent Allergy Hives Uncoded 02/18/19 19:55 PMH/Surg Hx/FS Hx/Imm Hx Previously Healthy: Yes - Surgical History Surgical History: Yes Surgery Procedure, Year, and Place: Appendectomy. Tonsillectomy - Family History Known Family History: Positive: Diabetes, Other - Diverticulitis Negative: Respiratory Disease - Social History Alcohol Use: None Substance Use Type: None Smoking Status (MU): Former Smoker Type: Cigars Amount Used/How Often: when drinking alcohol Have You Smoked in the Last Year: Yes When Did the Patient Quit Smoking/Using Tobacco: 2017 - Immunization History Most Recent Tetanus Shot: less then 5 yrs Review of Systems All Other Systems Reviewed And Are Negative: Yes Constitutional: Negative: Fever, Chills Neurovascular: Positive: Decreased Sensation Neurological: Positive: Paresthesia, Numbness. Negative: Headache, Weakness Physical Exam - Summary Physical Exam Summary: Vital Signs Reviewed: Yes A+Ox3, no distress Eyes: Conjunctiva Clear, PERRL. EOM intact and full ENT: Hearing grossly normal TM x 2 clear, moist, uvula midline, no exudate, no erythema Neck: Positive: Supple Respiratory: Positive: No respiratory distress, No accessory muscle use + CTA throughout no w/r Cardiovascular: RRR nl s1, s2 no m/r CBT <2 sec abd soft + BS nt/nd no guarding, no distension Musculoskeletal Exam: LIVE x 4 without difficulty Strength Intact, ROM Intact Neurological: Positive: Decreased sensation to light touch and painful stimuli on the left upper extremity and lower extremity. Cranial nerves II through XII intact. Full strength in all 4 extremities. Normal sensation in the face. Negative Romberg. Normal gait. Finger to nose intact. Psychological: Positive: Normal Response To Family Skin: Positive: no rash, no ecchymosis Triage Information Reviewed: Yes Vital Signs: Initial Vital Signs Temp 97.6 F 02/18/19 19:50 Pulse 89 02/18/19 19:50 Resp 16 02/18/19 19:50 BP 129/87 02/18/19 19:50 Pulse Ox 100 02/18/19 19:50 Course/Dx - Course Course Of Treatment: Patient is here with left-sided paresthesias. Patient checked in with only upper extremity paresthesias so he was brought back. On examination, patient realizes left-sided his body was affected more than he thought. Patient's symptoms are concerning for stroke but he was out of the TPA window. Patient was encouraged to go to the emergency department for further evaluation but did not need ambulance transport. - Differential Dx - Multi-Symptom Differential Diagnoses: CVA, Other - Peripheral neuropathy, radiculopathy, electrolyte abnormality, anxiety - Diagnoses Provider Diagnosis: Paresthesia of arm, Paresthesia of left leg Discharge - Sign-Out/Discharge Documenting (check all that apply): Patient Departure All imaging exams completed and their final reports reviewed: No Studies - Discharge Plan Condition: Fair Disposition: HOME-RECOMMEND TO ED Referrals: Laurel Martínez PA [Primary Care Provider] - Additional Instructions: Please go straight to the emergency department to be evaluated for stroke - Billing Disposition and Condition Condition: FAIR Disposition: Home-Recommend to ED
== END 2019-02-18 21:19 | disposition home health service (06) ==
LOC: UCCORT 18:59
DX: R20.2 Paresthesia of skin (principal); Z87.891 Personal history of nicotine dependence
CPT/HCPCS: 99212; G0463

== ENCOUNTER 2019-09-09 14:16 | Emergency (ER) | payer OTHER ==
--- OUTSIDE RECORDS SUMMARY | 2019-09-09 14:23 | XMS REPORT | Continuity of Care Document ---
:1990 External Reference #:[id number] Author Name Caroline Thompson MD Address [address] [place] [address] Care Team Providers Name Role Phone HCP given Care Team Information Claims Consultant Unavailable Problems Active Problems Provider Date Gastroesophageal reflux disease Laurel Martínez PA Onset: 12/17/2018 Diaphragmatic hernia Laurel Martínez PA Onset: 12/17/2018 Microscopic colitis Laurel Martínez PA Onset: 12/17/2018 Epilepsy Laurel Martínez PA Onset: 12/17/2018 Posttraumatic stress disorder Laurel Martínez PA Onset: 12/17/2018 Allergic rhinitis Laurel Martínez PA Onset: 04/29/2019 Social History Type Date Description Comments Sex Unknown Tobacco Use Start: Unknown End: Former Cigarette Smoker Quit 2017 Unknown ETOH Use Rarely consumes alcohol Recreational Drug Use Denies Drug Use Tobacco Use Start: Unknown End: Patient is a former smoker Unknown Tobacco Use Reviewed: 06/29/19 Non Smoker Smoking Status Reviewed: 09/03/19 Non Smoker Exercise Type/Frequency Exercises sporadically Sun Exposure Does not use sunscreen Seat Belt/Car Seat Seat Belt Use - Yes Smoke Alarms Yes smoke alarm Allergies, Adverse Reactions, Alerts Description No Known Drug Allergies Medications Active Medications SIG Qnty Indications Ordering Date Provider Primidone start with one 150tabs R25.1 Caroline Thompson, 09/03/2019 50mg Tablets tablet at bedtime. Taper up by one tablet juan alberto three days as tolerated in divided doses 2-3 times daily. Max 5 tablets daily Excedrin Extra as needed Unknown 08/16/2019 Strength [id number] Tablets Pantoprazole Sodium 1 tab by mouth 30tabs K21.9 Alexis Valle, 2018 every day for M.D. 40mg Tablets DR reflux Famotidine one tab by mouth 30tabs K21.9 Alexis Valle, 12/16/2018 20mg Tablets twice daily for M.D. reflux History Medications Propranolol HCL take 1 tablet 60tabs R25.1 Alexis Valle, 08/18/2019 - 40mg by mouth twice M.D. 08/27/2019 Tablets daily for tremor Cetirizine HCL 1 tab by mouth 30tabs J30.9 Alexis Valle, 04/29/2019 - 10mg every day M.D. 06/08/2019 Tablets Montelukast Sodium 1 tab by mouth 30tabs J30.9 Alexis Valle, 2018 - every day M.D. 06/08/2019 10mg Tablets Baclofen 1 tab by mouth 90tabs M50.10 Alexis Valle, 04/01/2019 - 20mg Tablets three times a M.D. 06/08/2019 day for muscle spasms Omeprazole one cap by 30caps K21.9 Alexis Valle, 03/16/2019 - 20mg mouth once M.D. 06/29/[address] daily Medications Administered in Office Medication SIG Qnty Indications Ordering Provider Date TB Intradermal Test Laurel Martínez PA 08/18/2019 Injection Immunizations CPT Code Status Date Vaccine Lot # [id number] Given 08/18/2019 Influenza Virus Vaccine, Quadrivalent, Split, [id number] Preservative Free Vital Signs Date Vital Result Comment 09/03/2019 1:47pm BP Systolic 140 mmHg BP Diastolic 88 mmHg 08/18/2019 11:18am BP Systolic 118 mmHg BP Diastolic 84 mmHg Height 66.75 inches 5'6.75" Weight 230.00 lb BMI (Body Mass Index) 36.3 kg/m2 Results Description No Information Available Procedures Date Code Description Status 10/09/2018 09198463 Colonoscopy Completed Medical Devices Description No Information Available Encounters Type Date Location Provider Dx Diagnosis Office Visit 09/03/2019 Main Office Caroline Thompson, R25.1 Tremor, unspecified 1:15p Office Visit 08/18/2019 Main Office Laurel Martínez PA M25.512 Pain in left 11:00a shoulder R25.1 Tremor, unspecified Z23 Encounter for immunization Z11.1 Encounter for screening for respiratory tuberculosis Z41.8 [facility] Body mass index (BMI) 36.0-36.9, adult Office Visit 07/07/2019 1:40p Main Office Laurel Martínez, M50.10 Cervical disc PA disorder w radiculopathy, unsp cervical region M25.512 Pain in left shoulder Office Visit 06/29/2019 2:30p Main Office Laurel Martínez, K21.9 Gastro- esophageal PA reflux disease without esophagitis K44.9 Diaphragmatic hernia without obstruction or gangrene R13.14 Dysphagia, pharyngoesophageal phase M50.10 Cervical disc disorder w radiculopathy, unsp cervical region Office Visit 06/09/2019 4:00p Main Office Laurel Martínez M50.10 Cervical disc PA disorder w radiculopathy, unsp cervical region M54.17 Radiculopathy, lumbosacral region Z68.36 Body mass index (BMI) 36.0-36.9, adult Office Visit 04/29/2019 11:05a Main Office Laurel Martínez M50.10 Cervical disc PA disorder w radiculopathy, unsp cervical region M25.512 Pain in left shoulder J30.9 Allergic rhinitis, unspecified Office Visit 04/01/2019 11:05a Main Office Laurel Martínez M50.10 Cervical disc PA disorder w radiculopathy, unsp cervical region Office Visit 03/16/2019 11:05a Main Office Laurel Martínez, M50.10 Cervical disc PA disorder w radiculopathy, unsp cervical region Assessments Date Code Description Provider 09/03/2019 R25.1 Tremor, unspecified Caroline Thompson MD 08/20/2019 Z11.1 Encounter for screening for respiratory Nurse's Schedule tuberculosis 08/18/2019 M25.512 Pain in left shoulder Laurel Martínez PA 08/18/2019 R25.1 Tremor, unspecified Laurel Martínez PA 08/18/2019 Z23 Encounter for immunization Laurel Martínez PA 08/18/2019 Z11.1 Encounter for screening for respiratory Laurel Martínez PA tuberculosis 08/18/2019 Z41.8 Encounter for other procedures for purposes Laurel Martínez PA [facility] than [facility] 08/18/2019 Z68.36 Body mass index (BMI) 36.0-36.9, adult Laurel Martínez, PA 08/18/2019 Z11.1 Encounter for screening for respiratory Nurse's Schedule tuberculosis 07/07/2019 M50.10 Cervical disc disorder with radiculopathy, HekLaurel almanza, PA unspecified cervical region 07/07/2019 M25.512 Pain in left shoulder Laurel Martínez PA 06/29/2019 K21.9 Gastro-esophageal reflux disease without HektorEzrali, PA esophagitis 06/29/2019 K44.9 Diaphragmatic hernia without obstruction or HektorLaurel, PA gangrene 06/29/2019 R13.14 Dysphagia, pharyngoesophageal phase Laurel Martínez, PA 06/29/2019 M50.10 Cervical disc disorder with radiculopathy, HektorEzrali, PA unspecified cervical region 06/09/2019 M50.10 Cervical disc disorder with radiculopathy, HektorEzrali, PA unspecified cervical region 06/09/2019 M54.17 Radiculopathy, lumbosacral region HektorEzrali, PA 06/09/2019 Z68.36 Body mass index (BMI) 36.0-36.9, adult Laurel Martínez, PA 04/29/2019 M50.10 Cervical disc disorder with radiculopathy, HektorEzrali, PA unspecified cervical region 04/29/2019 M25.512 Pain in left shoulder Laurel Martínez PA 04/29/2019 J30.9 Allergic rhinitis, unspecified HektorLaurel, PA 04/01/2019 M50.10 Cervical disc disorder with radiculopathy, HektorEzrali, PA unspecified cervical region 03/16/2019 M50.10 Cervical disc disorder with radiculopathy, Hektor, Laurel, PA unspecified cervical region Plan of Treatment Future Appointment(s):09/20/2019 10:00 am - Caroline Thompson MD at [id number] - Laurel Martínez PAM50.10 Cervical disc disorder with radiculopathy, unspecified cervical regionComments:Pt to keep doing PT and continue f/u w sports complex attendant as directed.M25.512 Pain in left shoulderComments: See #1 Functional Status Description No Information Available Mental Status Description No Information Available Referrals Refer to Dr Reason for Referral Status Appt Date Tanja Kerr Md prior pt of Dr. Low [facility] Sent 2018 [facility] [address] [place] [address] [phone] Chelsea Del Angel Md Neck pain with R-sided radiculopathy, Sent 2019 persistent despite PT and medications. Consult and Treat [facility] [address], [place] [address] [phone] [facility] Orthopedic care for left arm pain Closed 2018 [facility] [address] [place] [address] [phone]
--- OUTSIDE RECORDS SUMMARY | 2019-09-09 14:23 | XMS REPORT | Continuity of Care Document ---
:1990 External Reference #:[id number] Author Name Shelli Robbins MD Address [address] [place] [id number] Care Team Providers Name Role Phone Rafita Rashid MD - Hand Surgery Care Team Information Supervisor Sanding [phone] [facility] Medicine - Internal Care Team Information Supervisor Sanding Medicine Problems Active Problems Provider Date Displacement of lumbar intervertebral disc Manuel Menchaca M.D. Onset: 2014 without myelopathy Partial seizure evolving to secondary Hattie Salamanca M.D. Onset: 2015 generalized seizure Intervertebral disc disorder Onset: 09/05/2015 Cellulitis Onset: 05/21/2014 Gastroesophageal reflux disease Onset: 05/04/2018 Low back pain Onset: 08/08/2015 Social History Type Date Description Comments Sex Unknown Tobacco Use Start: Unknown Never Smoked Cigarettes ETOH Use Rarely consumes alcohol Recreational Drug Use Denies Drug Use Tobacco Use Start: Unknown End: Patient is a former smoker Unknown Smoking Status Reviewed: 05/04/19 Patient is a former smoker Exercise Type/Frequency Exercises rarely Allergies, Adverse Reactions, Alerts Description No Known Drug Allergies Medications Active Medications SIG Qnty Indications Ordering Provider Date Hydrocodone 1 by mouth every 28tabs M54.12 Shelli Robbins MD 05/04/2019 Bitartrate/Acetaminop 6 hours as hen needed pain 5-325mg Tablets M75.42 Omeprazole Once Daily 30tabs Unknown 05/04/[address] Lovell Migraine 2 po as needed Unknown [phone] Tablets Acetaminophen Extra Strength 2 tabs by mouth every 8 Unknown 500mg Tablets hours as needed for pain or fever Ibuprofen 4 tabs by mouth as needed Unknown 200mg Tablets Famotidine Once Daily 30tabs Unknown 20mg Tablets Baclofen take 1/2-1 tab every 8 Unknown 10mg Tablets hours as needed for muscle spasm Tramadol HCL ER (Biphasic) 1 by mouth every day Unknown 100mg Tablets ER 24HR Medications Administered in Office Medication SIG Qnty Indications Ordering Provider Date Depomedrol 40MG Shelli Robbins MD 05/04/2019 Injection Immunizations Description No Information Available Vital Signs Date Vital Result Comment 05/08/2018 1:12pm Height 69 inches 5'9" Heart Rate 87 /min BP Systolic 128 mmHg BP Diastolic 90 mmHg Respiratory Rate 16 /min Pain Level 6 O2 % BldC Oximetry 97 % 03/06/2018 1:24pm Height 69 inches 5'9" Weight 210.00 lb Heart Rate 84 /min BP Systolic Sitting 124 mmHg BP Diastolic Sitting 70 mmHg Respiratory Rate 16 /min Pain Level 9 BMI (Body Mass Index) 31.0 kg/m2 Results Description No Information Available Procedures Date Code Description Status 05/04/2019 Inj/Aspir Major JT Or Bursa W/ US Completed Medical Devices Description No Information Available Encounters Type Date Location Provider Dx Diagnosis Office Visit 07/06/2019 Sports Medicine Shelli Robbins, M54.12 Radiculopathy, 1:50p Of Rn Hemodialysis Charge AT cervical region [place] M75.42 Impingement syndrome of left shoulder Office Visit 06/08/2019 1:30p Sports Shelli M54.[place] Radiculopathy, Medicine Tequila Robbins MD cervical region Rn Hemodialysis Charge AT [place] M75.82 Other shoulder lesions, left shoulder Office Visit 05/12/2019 9:30a Sports Medicine Maria Fernanda Hendrickson75.42 Impingement Of Nell SIERRA MD syndrome of left [place] shoulder M54.12 Radiculopathy, cervical region Office Visit 05/04/2019 2:30p Sports Shelli Winter4.[place] Radiculopathy, Medicine Tequila Robbins MD cervical region Rn Hemodialysis Charge AT [place] M75.42 Impingement syndrome of left shoulder Assessments Date Code Description Provider 08/17/2019 M54.12 Radiculopathy, cervical region Shelli Robbins MD 08/17/2019 M75.42 Impingement syndrome of left shoulder Shelli Robbins MD 07/06/2019 M54.12 Radiculopathy, cervical region Shelli Robbins MD 07/06/2019 M75.42 Impingement syndrome of left shoulder Shelli Robbins MD 06/08/2019 M54.12 Radiculopathy, cervical region Shelli Robbins MD 06/08/2019 M75.82 Other shoulder lesions, left shoulder Shelli Robbins MD 05/12/2019 M75.42 Impingement syndrome of left shoulder Shelli Robbins MD 05/12/2019 M54.12 Radiculopathy, cervical region Shelli Robbins MD 05/04/2019 M54.12 Radiculopathy, cervical region Shelli Robbins MD 05/04/2019 M75.42 Impingement syndrome of left shoulder Shelli Robbins MD Plan of Treatment 05/04/2019 - Shelli Robbins MDM54.12 Radiculopathy, cervical regionNew Medication:Hydrocodone Bitartrate/Acetaminophen 5-325 mg - 1 by mouth every 6 hours as needed painNew Xrays:MRI Cervical Spine Wo, Scheduled: 05/24/19M75.42 Impingement syndrome of left shoulderNew Medication:Hydrocodone Bitartrate/ Acetaminophen 5-325 mg - 1 by mouth every 6 hours as needed painNew Xrays:MRI Cervical Spine Wo, Scheduled: 05/24/19Comments:The patient has been having pain in his neck, left shoulder, and left arm. There is associated tingling into his hand and fingers. His exam is concerning for both a cervical radiculopathy and rotator cuff tendonitis from his shoulder. I recommended that he continue in physical therapy. I wouldlike to obtain a MRI of the cervical spine for further evaluation since he has not improved after 4 weeks of physical therapy. I recommended a subacromial cortisone injection for diagnostic and therapeutic purposes, and this was performed today. The patient should ice the shoulder as needed for comfort. He may take Ibuprofen or Tylenol as needed for pain. He is to follow-up with me after the MRIof the cervical spine has been obtained. Procedure note:The risks (including pain, infection, bleeding), benefits, and alternatives (including not injecting) of an ultrasound guided left subacromial injection were discussed with the patient in clinic today. Informed consent was obtained from the patient. The patient was seated on the exam table. A SonArrayit M-MSK ultrasound machine was used to locate the subacromial bursa, and the site was marked. The site was prepped with chlorhexidine gluconate 4% antiseptic solution. Under direct ultrasound guidance using an anterior lateral approach, the subacromial bursa was injected with 2 cc of 0.5% Marcaine and 2 cc of 40mg/ml of Depo Medrol. Ultrasound guidance was indicated to ensure needle placement accuracy. Images were stored on the [employer]. The patient tolerated the procedure well, and there were no immediate complications noted. Post injection instructions were given. The patient should apply ice to the involved area and avoidany exacerbating activities for the next few days. The patient should call immediately with any signs or symptoms of infection. Functional Status Description No Information Available Mental Status Description No Information Available Referrals Description No Information Available
--- OUTSIDE RECORDS SUMMARY | 2019-09-09 14:23 | XMS REPORT | Continuity of Care Document ---
:1990 External Reference #:[id number] Author Name James Burnett PA Address [address] [facility] [address] [facility], [address] [place] [address] Care Team Providers Name Role Phone Alexey Bergeron DO Care Team Information Marine Equipment Sales Engineer [phone] Problems Active Problems Provider Date Neck pain Shivani Vásquez PA Onset: 03/30/2019 Social History Type Date Description Comments Sex Unknown Smokeless Tobacco Never Used Smokeless Tobacco ETOH Use Occasionally consumes alcohol Tobacco Use Start: Unknown End: Patient is a former smoker Unknown Recreational Drug Use Denies Drug Use Smoking Status Reviewed: 07/19/19 Patient is a former smoker Allergies, Adverse Reactions, Alerts Description No Known Drug Allergies Medications Active Medications SIG Qnty Indications Ordering Provider Date Pantoprazole Sodium Take 1 Tablet By Unknown 40mg Mouth Once Daily Tablets DR For Reflux Famotidine 1 tab by mouth 60tabs Tanja Kerr MD 40mg Tablets twice a day before meals Immunizations Description No Information Available Vital Signs Date Vital Result Comment 07/19/2019 11:14am BP Systolic Sitting Left Arm 119 mmHg BP Diastolic Sitting Left Arm 87 mmHg Body Temperature 98.4 F Heart Rate 96 /min Respiratory Rate 16 /min Height 66 inches 5'6" Weight 230.00 lb BMI (Body Mass Index) 37.1 kg/m2 BSA (Body Surface Area) 2.12 m2 [place] body weight in kilograms 64 kg O2 % BldC Oximetry 98 % 03/30/2019 2:39pm BP Systolic 134 mmHg BP Diastolic 80 mmHg Body Temperature 97.3 F Heart Rate 90 /min Height 66 inches 5'6" Weight 227.00 lb BMI (Body Mass Index) 36.6 kg/m2 BSA (Body Surface Area) 2.11 m2 [place] body weight in kilograms 64 kg O2 % BldC Oximetry 97 % Results Description No Information Available Procedures Date Code Description Status 03/30/2019 62789 Radiology, Shoulder: Two Views (Sso) Completed 03/09/2004 23380682 Flexible Sigmoidoscopy Completed Medical Devices Description No Information Available Encounters Type Date Location Provider Dx Diagnosis Office Visit 07/19/2019 GI James Burnett, K21.0 Gastro-esophageal 11:00a PA reflux disease with esophagitis R11.10 Vomiting, unspecified Office Visit 03/30/2019 2:15p Orthopaedic Office Shivani Vásquez, M25.512 Pain in left PA shoulder M54.2 Cervicalgia Assessments Date Code Description Provider 07/19/2019 K21.0 Gastro-esophageal reflux disease with James Burnett PA esophagitis 07/19/2019 R11.10 Vomiting, unspecified James Burnett PA 03/30/2019 M25.512 Pain in left shoulder Shivani Vásquez PA 03/30/2019 M54.2 Cervicalgia Shivani Vásquez PA Plan of Treatment Future Appointment(s):10/26/2019 10:00 am - James Burnett PA at [facility] - James Burnett, PAK21.0 Gastro-esophageal reflux disease with esophagitisComments:Pantoprazole should be taken 30 minutes before a meal. He may increase this to twice a day before evening and morning meal. He'll also take his famantadine at least 1 and hour before.R11.10 Vomiting, unspecifiedComments:If these symptoms do not improve he is to come back sooner otherwise I'll see him back in for months Functional Status Description No Information Available Mental Status Description No Information Available Referrals Description No Information Available
--- OUTSIDE RECORDS SUMMARY | 2019-09-09 14:23 | XMS REPORT | Continuity of Care Document ---
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 Tablets daily for tremor Excedrin Extra as needed Unknown 08/16/2019 Strength [id number] Tablets Pantoprazole Sodium 1 tab by mouth 30tabs K21.9 Alexis Valle, 2018 40mg every day for M.D. Tablets DR ezra Famotidine one tab by mouth 30tabs K21.9 Alexis Valle, 12/16/2018 20mg Tablets twice daily for M.D. reflux History Medications Cetirizine HCL 1 tab by mouth 30tabs [...] CPT Code Status Date Vaccine Lot # [id number] Given 08/18/2019 Influenza Virus Vaccine, Quadrivalent, Split, [id number] Preservative Free Vital Signs Date Vital Result Comment 08/18/2019 11:18am BP Systolic 118 mmHg BP Diastolic 84 mmHg Height 66.75 inches 5'6.75" Weight 230.00 lb BMI (Body Mass Index) 36.3 kg/m2 07/07/2019 1:24pm BP Systolic 134 mmHg BP Diastolic 72 mmHg Weight 232.00 lb Results Description No Information Available Procedures Date Code Description Status 10/09/2018 48590141 Colonoscopy Completed Medical Devices Description No Information Available Encounters Type Date Location Provider Dx Diagnosis Office Visit 08/18/2019 Main Office Laurel Martínez PA M25.512 Pain in left 11:00a shoulder R25.1 Tremor, unspecified Z23 Encounter for immunization Z11.1 Encounter for screening for respiratory tuberculosis Z41.8 Encntr for oth proc for purpose oth [facility] Z68.36 Body mass index (BMI) 36.0-36.9, adult Office Visit 07/07/2019 1:40p Main Office Laurel Martínez M50.10 Cervical disc PA disorder w radiculopathy, unsp cervical region M25.512 Pain in left shoulder Office Visit 06/29/2019 2:30p Main Office Laurel Martínez, K21.9 Gastro- esophageal PA reflux disease without esophagitis K44.9 Diaphragmatic hernia without obstruction or gangrene R13.14 Dysphagia, pharyngoesophageal phase M50.10 Cervical disc disorder w radiculopathy, unsp cervical region Office Visit 06/09/2019 4:00p Main Office Laurel Martínez, M50.10 Cervical disc [...] cervical region Assessments Date Code Description Provider 08/20/2019 Z11.1 Encounter for screening for respiratory Nurse's Schedule tuberculosis 08/18/2019 M25.512 Pain in left shoulder Laurel Martínez PA 08/18/2019 R25.1 Tremor, unspecified Laurel Martínez PA 08/18/2019 Z23 Encounter for immunization Laurel Martínez PA 08/18/2019 Z11.1 Encounter for screening for respiratory Laurel Martínez PA tuberculosis 08/18/2019 Z41.8 Encounter for other procedures for purposes Laurel Martínez PA other than remedying health state 08/18/2019 Z68.36 Body mass index (BMI) 36.0-36.9, adult Laurel Martínez PA 08/18/2019 Z11.1 Encounter for screening for respiratory Nurse's Schedule tuberculosis 07/07/2019 M50.10 Cervical disc disorder with radiculopathy, Laurel Martínez PA unspecified cervical region 07/07/2019 M25.512 Pain in left shoulder Laurel Martínez PA 06/29/2019 K21.9 Gastro-esophageal reflux disease without HekLaurel almanza, PA esophagitis 06/29/2019 K44.9 Diaphragmatic hernia without obstruction or HekLaurel almanza, PA gangrene 06/29/2019 R13.14 Dysphagia, pharyngoesophageal phase HekLaurel almanza, PA 06/29/2019 M50.10 Cervical disc disorder with radiculopathy, Hektor, Laurel, PA unspecified cervical region 06/09/2019 M50.10 Cervical disc disorder with radiculopathy, Hektor, Laurel, PA unspecified cervical region 06/09/2019 M54.17 Radiculopathy, lumbosacral region KarytorLaurel, PA 06/09/2019 Z68.36 Body mass index (BMI) 36.0-36.9, adult Laurel Martínez, PA 04/29/2019 M50.10 Cervical disc disorder with radiculopathy, HektorEzrali, PA unspecified cervical region 04/29/2019 M25.512 Pain in left shoulder Laurel Martínez, PA 04/29/2019 J30.9 Allergic rhinitis, unspecified HektorEzrali, PA 04/01/2019 M50.10 Cervical disc disorder with radiculopathy, HektorEzrali, PA unspecified cervical region 03/16/2019 M50.10 Cervical disc disorder with radiculopathy, Hektor Laurel, PA unspecified cervical region Plan of Treatment 07/07/2019 - Laurel Martínez PAM50.10 Cervical disc disorder with radiculopathy, unspecified cervical regionComments:Pt to keep doing PT and continue f/u w physician primary care sports medicine as directed.M25.512 Pain in left shoulderComments: See #1 Functional Status Description No Information Available Mental Status Description No Information Available Referrals Refer to Dr Reason for Referral Status Appt Date Tanja Kerr Md prior pt of Dr. Low Consult and Treat Sent 2018 Mat ROWLAND [address] [place] [address] [phone] Chelsea Del Angel Md Neck pain with R-sided radiculopathy, Sent 2019 persistent despite PT and medications. Consult and Treat [facility] [address], [place] [address] [phone] [facility] Orthopedic care for left arm pain Closed 2018 Consult and Treat [address] [place] [address] [phone]
[2019-09-09 14:30] VITALS: BP 109/76
--- NOTE | 2019-09-09 14:53 | UC ---
Throat Pain/Nasal Ricki HPI - HPI Summary HPI Summary: Cough, runny nose, headache x3-4 days. Pt deneis fever, chest congestion, wheezing - History of Current Complaint Chief Complaint: UCGeneralIllness Stated Complaint: COUGH Time Seen by Provider: 09/09/19 14:51 Hx Obtained From: Patient Onset/Duration: Sudden Onset, Lasting Days Severity: Severe Pain Intensity: 7 Associated Signs & Symptoms: Positive: Dysphagia - Allergies/Home Medications Allergies/Adverse Reactions: Allergies Allergy/AdvReac Type Severity Reaction Status Date / Time phosphates Allergy Severe Hives Uncoded 09/09/19 14:25 Era detergent Allergy Hives Uncoded 09/09/19 14:25 Home Medications: Home Medications Famotidine TAB* [Pepcid 20 MG TAB*] 1 tab PO DAILY 11/23/18 [History Confirmed 09/09/19] Albuterol HFA INHALER* [Ventolin HFA Inhaler*] 2 puff INH Q4H PRN #1 mdi [Rx] Azithromyxin OMID (NF) [Z-Omid (Zithromax) 250 mg tabs #6] 2 tab PO .TODAY, THEN 1 DAILY #6 tab 09/09/19 [Rx] Primidone 50 mg PO TID 09/09/19 [History Confirmed 09/09/19] predniSONE [Prednisone 20 MG TAB] 40 mg PO DAILY #10 tablet 09/09/19 [Rx] PMH/Surg Hx/FS Hx/Imm Hx Previously Healthy: Yes - Surgical History Surgical History: Yes Surgery Procedure, Year, and Place: Appendectomy. Tonsillectomy - Family History Known Family History: Positive: Diabetes, Other - Diverticulitis Negative: Respiratory Disease - Social History Alcohol Use: None Substance Use Type: None Smoking Status (MU): Former Smoker Type: Cigars Amount Used/How Often: when drinking alcohol Have You Smoked in the Last Year: Yes When Did the Patient Quit Smoking/Using Tobacco: 2017 - Immunization History Most Recent Tetanus Shot: less then 5 yrs Review of Systems All Other Systems Reviewed And Are Negative: Yes Eyes: Positive: Eye Redness ENT: Positive: Sore Throat Respiratory: Positive: Cough Neurological/Mental Status: Positive: Headache Is Patient Immunocompromised?: No Physical Exam Triage Information Reviewed: Yes Appearance: Well-Nourished, Ill-Appearing, Pain Distress Vital Signs: Initial Vital Signs Temp 97.4 F 09/09/19 14:27 Pulse 94 09/09/19 14:27 Resp 14 09/09/19 14:27 BP 109/76 09/09/19 14:27 Pulse Ox 98 09/09/19 14:27 Vital Signs Reviewed: Yes Eyes: Positive: Conjunctiva Inflamed ENT: Positive: Pharyngeal erythema - wiht pnd, Nasal congestion, TM bulging Respiratory Exam: Normal Respiratory: Positive: Chest non-tender, Lungs clear, Normal breath sounds, Other: - severe cough present Cardiovascular Exam: Normal Cardiovascular: Positive: RRR, No Murmur, Pulses Normal Bowel Sounds: Positive: Present Musculoskeletal Exam: Normal Neurological Exam: Normal Psychological Exam: Normal Skin Exam: Normal Throat Pain/Nasal Course/Dx - Course Course Of Treatment: hx obtained, exam performed ,meds reviewed, treated for cough with albuterol, rapid flu obtained. - Differential Dx/Diagnosis Differential Diagnosis/HQI/PQRI: Influenza, Pharyngitis, Sinusitis, Other - bronchitis Provider Diagnosis: Bronchitis, Sinusitis Discharge ED - Sign-Out/Discharge Documenting (check all that apply): Patient Departure All imaging exams completed and their final reports reviewed: No Studies - Discharge Plan Condition: Stable Disposition: HOME Prescriptions: Albuterol HFA INHALER* [Ventolin HFA Inhaler*] 2 puff INH Q4H PRN #1 mdi PRN Reason: Cough Azithromyxin OMID (NF) [Z-Omid (Zithromax) 250 mg tabs #6] 2 tab PO .TODAY, THEN 1 DAILY #6 tab predniSONE [Prednisone 20 MG TAB] 40 mg PO DAILY #10 tablet Referrals: Laurel Martínez PA [Primary Care Provider] - - Billing Disposition and Condition Condition: STABLE Disposition: Home - Attestation Statements Provider Attestation: I was available for consult. This patient was seen by the [facility]. The patient was not presented to, seen by, or examined by me. -Hollie
[2019-09-09] MEDS ORDERED: Albuterol 2.5 MG/3 ML NEB.SOL* (0.083%) INH ONE (14:55)
[2019-09-09 15:21] LABS: Influenza A Molecular Negative (Negative); Influenza B Molecular Negative (Negative)
== END 2019-09-09 15:33 | disposition home or self-care (01) ==
LOC: UCCORT 14:16
DX: J40 Bronchitis, not specified as acute or chronic (principal); J32.9 Chronic sinusitis, unspecified; Z88.8 Allergy status to other drugs, medicaments and biological substances; Z91.09 Other allergy status, other than to drugs and biological substances; Z87.891 Personal history of nicotine dependence; H57.89 Other specified disorders of eye and adnexa
CPT/HCPCS: 99212; G0463